=== PATIENT | male | born 1975 | race Caucasian/White ===

== ENCOUNTER 2021-09-18 07:59 | Emergency (ER) | payer OTHER ==
[2021-09-18 08:08] VITALS: BMI 25.0
[2021-09-18 08:53] LABS: INR 0.96 (0.83-1.09)
[2021-09-18 08:56] LABS: HEMATOCRIT 42.1 % (35.4-49); MCHC 35.7 g/dl (32.0-35.9); MEAN CELL VOLUME 89.7 fl (80-96); MEAN PLT VOLUME 8.5 fl (7.5-11.1); PLATELET COUNT 160.8 10^3/uL (134-434); RBC 4.69 10^6/uL (4.00-5.60); RDW 13.4 % (11.9-15.9); WHITE BLOOD COUNT 5.1 10^3/uL (4.0-10.8)
[2021-09-18 09:02] LABS: ALBUMIN 4.3 g/dl (3.4-5.0); BILIRUBIN,TOTAL 0.6 mg/dl (0.2-1); CALCIUM 9.8 mg/dl (8.5-10); CREATININE 0.9 mg/dl (0.55-1.3); TOT PROT 6.8 g/dl (6.4-8.2)
[2021-09-18 09:35] VITALS: TEMP 98.5
[2021-09-18 10:03] VITALS: BP 115/79; PULSE 73
== END 2021-09-18 10:08 | disposition home or self-care (01) ==
LOC: FER 07:59
DX: R07.9 Chest pain, unspecified (principal)
CPT/HCPCS: 36415; 71046-TC-FY; 80053; 84484; 85027; 85610; 93005; 99285-25